=== PATIENT | female | born 2000 | race Caucasian/White ===

== ENCOUNTER 2020-08-14 18:01 | Inpatient (IN) | payer MEDICAID, SELFPAY ==
[2020-08-14 18:03] VITALS: RESP 18; TEMP 36.8; BMI 25.4
[2020-08-14] MEDS: LORazepam 1 mg Tablet PO (18:09)
--- NOTE | 2020-08-14 18:10 | W.ED.PSYCH ---
HPI - Psych General: Chief Complaint: Psychiatric Symptoms Stated Complaint: MHE Source: patient and EMS Mode of arrival: EMS Limitations: no limitations History of Present Illness: HPI Narrative: 19-year-old female lives at a foster care and states that today she is upset and does not want to live there anymore. She tried to harm herself by swallowing earrings and rubbed a plastic bottle on her arms and has some abrasions to her arms. She states she was suicidal at the time but does feel improved currently. She denies any worsening improving factors. MD complaint: suicidal ideation Associated symptoms: Reports depression and suicidal ideation Review of Systems Const: Denies: fever(s), chills, body aches or change in appetite Eyes: Denies: blurry vision or eye discomfort ENMT: Denies: throat pain or dental pain Card: Denies: chest pain Resp: Denies: dyspnea GI: Denies: abdominal pain, nausea, vomiting or diarrhea : Denies: dysuria Musc: Denies: neck pain or back pain Skin/Breast: Denies: rash Neuro: Denies: headache(s) Psych: Reports: depression and suicidal ideation Jermain/Lymph: Denies: easy bruising All/Imm: Denies: urticaria Physical Exam Const: COMMON NORMALS: no acute distress, patient oriented x3 and healthy appearing HENMT: COMMON NORMALS: normocephalic and atraumatic HEAD & SCALP: normocephalic and atraumatic Eye: COMMON NORMALS: Equal, round and reactive pupils present and EOMs intact bilaterally PUPIL: Yes Equal, round and reactive pupils present Neck/C-Spine: COMMON NORMALS: full ROM and supple Chest: COMMONS NORMALS: normal inspection of the chest and normal palpation of entire chest wall Resp: COMMON NORMALS: normal respiratory effort, No retractions, No use of accessory muscles and clear to auscultation bilaterally AUSCULTATION: clear to auscultation bilaterally Cardio: COMMON NORMALS: regular rate, regular rhythm and No murmurs present (Cardio) RATE: regular rate RHYTHM: regular rhythm GI: COMMON NORMALS: Normal to inspection, nondistended, normoactive bowel sounds present, Soft to palpation, non-tender and no masses PALPATION: Yes Soft to palpation Extremity: COMMON NORMALS: normal to inspection and full ROM Neuro: COMMON NORMALS: patient oriented x3, moves all extremities and no focal motor deficits Psych: COMMON NORMALS: mental status grossly normal, Normal thought process present and cooperative THOUGHT PROCESS: Normal thought process present Skin: COMMON NORMALS: no wounds NARRATIVE SKIN EXAM: Abrasions to bilateral arms noted MDM - Psych MDM Narrative: Medical decision making narrative: Patient presents here with suicidal ideation and did have abrasions to her arms along with foreign body ingested. X-ray shows no foreign bodies she has no signs of any bowel perforation has no pain. I spoke to the psychiatrist and will admit to the psychiatric oliver. She has been stable while here. Lab Data: Labs: Lab Results 08/14/20 08/14/20 08/14/20 Range/Units 18:20 18:20 18:22 WBC 10.0 (4.5-13.0) 10^3/ uL RBC 5.20 (4.1-5.3) 10^6/u L Hgb 14.3 (11.5-15.3) g/dL Hct 42.5 (37.0-47.0) % MCV 81.7 (81-99) fL MCH 27.5 L (28.0-34.0) pg MCHC 33.6 (30.0-36.0) g/dL RDW 13.2 (12.1-15.1) % Plt Count 277 (130-400) 10^3/c mm MPV 9.2 (7.4-10.4) fL Neut % (Auto) 68.7 % Lymph % (Auto) 20.3 % [place] % (Auto) 8.0 % Eos % (Auto) 1.7 % Baso % (Auto) 0.9 % Neut # (Auto) 6.83 (1.8-8.0) 10^3/u L Lymph # (Auto) 2.0 (1.5-6.5) 10^3/u L [place] # (Auto) 0.8 (0.2-0.9) 10^3/u L Eos # (Auto) 0.2 (0.0-0.8) 10^3/u L Baso # (Auto) 0.1 (0.0-0.1) 10^3/u L Nucleated RBC % (a uto) 0 % Nucleated RBCs # 0.0 /100WBC Sodium 133 L (136-145) mmol/L Potassium 3.8 (3.5-5.1) mmol/L Chloride 102 (98-107) mmol/L Carbon Dioxide 20 L (22-29) mmol/L Anion Gap 14.8 (5-19) BUN 9 (6-20) mg/dL Creatinine 0.7 (0.5-0.9) mg/dL GFR Calculation 107.8 (90-130) mL/min Glucose 94 (65-115) mg/dL Calculated Osmolal ity 274 L (285-295) mOsm/k g Calcium 9.8 (8.5-10.5) mg/dL Total Bilirubin 0.3 (0.15-1.2) mg/dL AST 17 (0-32) U/L ALT 11 (0-33) U/L Alkaline Phosphata se 93 (35-105) IU/L Total Protein 7.6 (6.6-8.7) g/dL Albumin 4.4 (3.5-5.2) g/dL Globulin 3.2 (1.3-4.6) g/dL HCG, Qual (Negative) Urine Color Yellow (Yellow) Urine Appearance Sl cloudy A (CLEAR) Urine pH 6 (5-7) Ur Specific Gravit y 1.020 (1.005-1.030) Urine Protein Neg (Negative) Urine Glucose (UA) Norm (Normal) Urine Ketones Negative (Negative) Urine Blood Neg (Negative) Urine Nitrate Negative (Negative) Urine Bilirubin Neg (Negative) Urine Urobilinogen Norm (Negative) mg/dL Ur Leukocyte Latoya ase 2+ H (Negative) Amorphous Sediment Not Reportable Salicylates < 0.3 L (3-10) mg/dL Urine Opiates Scre en (Negative) ng/mL Acetaminophen < 5.0 L (10-30) ug/mL Ur Barbiturates Sc reen (Negative) ng/mL Ur Phencyclidine S crn (Negative) ng/mL Ur Amphetamines Sc reen (Negative) ng/mL U Benzodiazepines Scrn (Negative) ng/mL Urine Cocaine Scre en (Negative) ng/mL U Marijuana (THC) Screen (Negative) ng/mL Ethyl Alcohol < 10 (0-10) mg/dL 08/14/20 08/14/20 Range/Units 18:22 18:22 WBC (4.5-13.0) 10^3/ uL RBC (4.1-5.3) 10^6/u L Hgb (11.5-15.3) g/dL Hct (37.0-47.0) % MCV (81-99) fL MCH (28.0-34.0) pg MCHC (30.0-36.0) g/dL RDW (12.1-15.1) % Plt Count (130-400) 10^3/c mm MPV (7.4-10.4) fL Neut % (Auto) % Lymph % (Auto) % [place] % (Auto) % Eos % (Auto) % Baso % (Auto) % Neut # (Auto) (1.8-8.0) 10^3/u L Lymph # (Auto) (1.5-6.5) 10^3/u L [place] # (Auto) (0.2-0.9) 10^3/u L Eos # (Auto) (0.0-0.8) 10^3/u L Baso # (Auto) (0.0-0.1) 10^3/u L Nucleated RBC % (a uto) % Nucleated RBCs # /100WBC Sodium (136-145) mmol/L Potassium (3.5-5.1) mmol/L Chloride (98-107) mmol/L Carbon Dioxide (22-29) mmol/L Anion Gap (5-19) BUN (6-20) mg/dL Creatinine (0.5-0.9) mg/dL GFR Calculation (90-130) mL/min Glucose (65-115) mg/dL Calculated Osmolal ity (285-295) mOsm/k g Calcium (8.5-10.5) mg/dL Total Bilirubin (0.15-1.2) mg/dL AST (0-32) U/L ALT (0-33) U/L Alkaline Phosphata se (35-105) IU/L Total Protein (6.6-8.7) g/dL Albumin (3.5-5.2) g/dL Globulin (1.3-4.6) g/dL HCG, Qual Negative (Negative) Urine Color (Yellow) Urine Appearance (CLEAR) Urine pH (5-7) Ur Specific Gravit y (1.005-1.030) Urine Protein (Negative) Urine Glucose (UA) (Normal) Urine Ketones (Negative) Urine Blood (Negative) Urine Nitrate (Negative) Urine Bilirubin (Negative) Urine Urobilinogen (Negative) mg/dL Ur Leukocyte Latoya ase (Negative) Amorphous Sediment Salicylates (3-10) mg/dL Urine Opiates Scre en Negative (Negative) ng/mL Acetaminophen (10-30) ug/mL Ur Barbiturates Sc reen Negative (Negative) ng/mL Ur Phencyclidine S crn Negative (Negative) ng/mL Ur Amphetamines Sc reen Negative (Negative) ng/mL U Benzodiazepines Scrn Positive H (Negative) ng/mL Urine Cocaine Scre en Negative (Negative) ng/mL U Marijuana (THC) Screen Negative (Negative) ng/mL Ethyl Alcohol (0-10) mg/dL Imaging Data^: CXR: Radiologist's impression: [facility] [address] [place] [id number] XRay Report Signed Patient: Roberta Gordon Unit #: [id number] : 2000 Age/Sex: 19 / F ADM Date: 08/14/20 Loc: ER Room/Bed: Attending Dr: Ordering Provider/Ordering MD: Rell Watson MD Date of Service: 08/14/20 Procedure(s): XR chest 1V portable [id number] Accession Number(s): [id number] Report Number: [id number] PROCEDURE INFORMATION: Exam: XR Chest, 1 View Exam date and time: 08/14/2020 6:17 PM Age: 19 years old Clinical indication: Other: Foreign body; Patient HX: States, swallowed parts of a binder; Additional info: Fb TECHNIQUE: Imaging protocol: XR of the chest Views: 1 view. COMPARISON: No relevant prior studies available. FINDINGS: Lungs: Unremarkable. No consolidation. Pleural spaces: Unremarkable. No pleural effusion. No pneumothorax. Heart/Mediastinum: Unremarkable. No cardiomegaly. Bones/joints: Unremarkable. Intraperitoneal space: Small radiopaque objects are noted in upper abdomen to the left of midline in the region of the gastric body. XR/XR chest 1V portable [id number] IMPRESSION: 1. No acute pulmonary disease. 2. Radiopaque foreign body in the upper abdomen. KUB: Radiologist's impression: [facility] [address] [place] [address] XRay Report Signed Patient: Roberta Gordon Unit #: [id number] : 2000 Age/Sex: 19 / F ADM Date: 08/14/20 Loc: ER Room/Bed: Attending Dr: Ordering Provider/Ordering MD: Rell Watson MD Date of Service: 08/14/20 Procedure(s): XR KUB [id number] Accession Number(s): [id number] Report Number: [id number] PROCEDURE INFORMATION: Exam: XR Abdomen, 1 View Exam date and time: 08/14/2020 6:17 PM Age: 19 years old Clinical indication: Other: Foreign body; Patient HX: States, swallowed parts of a binder; Additional info: Fb TECHNIQUE: Imaging protocol: XR of the abdomen. Views: Frontal supine view of the abdomen. 1 View. COMPARISON: No relevant prior studies available. FINDINGS: Gastrointestinal tract: Several small metallic radiopaque screw like objects are noted in the upper abdomen in the expected region of the gastric lumen. Bowel gas pattern is nonobstructive. Negative for bowel pneumatosis. Intraperitoneal space: Negative for pneumoperitoneum. Bones/joints: Unremarkable. Other findings: Moderate fecal volume. XR/XR KUB [id number] IMPRESSION: Several metallic screw like foreign body objects project over the stomach. Discharge Plan Discharge Patient Disposition: Admitted As Inpatient Clinical Impression: Suicidal ideation, Foreign body ingestion Condition: Stable Coding Level of Care Code ED Cardiology Manager for Gypsy Fwkarla Exam Comprehensive
--- NOTE | 2020-08-14 18:14 | XRR_ITS ---
PROCEDURE INFORMATION: Exam: XR Abdomen, 1 View Exam date and time: 08/14/2020 6:17 PM Age: 19 years old Clinical indication: Other: Foreign body; Patient HX: States, swallowed parts of a binder; Additional info: Fb TECHNIQUE: Imaging protocol: XR of the abdomen. Views: Frontal supine view of the abdomen. 1 View. COMPARISON: No relevant prior studies available. FINDINGS: Gastrointestinal tract: Several small metallic radiopaque screw like objects are noted in the upper abdomen in the expected region of the gastric lumen. Bowel gas pattern is nonobstructive. Negative for bowel pneumatosis. Intraperitoneal space: Negative for pneumoperitoneum. Bones/joints: Unremarkable. Other findings: Moderate fecal volume. XR/XR KUB [id number] IMPRESSION: Several metallic screw like foreign body objects project over the stomach.
--- NOTE | 2020-08-14 18:14 | XRR_ITS ---
PROCEDURE INFORMATION: Exam: XR Chest, 1 View Exam date and time: 08/14/2020 6:17 PM Age: 19 years old Clinical indication: Other: Foreign body; Patient HX: States, swallowed parts of a binder; Additional info: Fb TECHNIQUE: Imaging protocol: XR of the chest Views: 1 view. COMPARISON: No relevant prior studies available. FINDINGS: Lungs: Unremarkable. No consolidation. Pleural spaces: Unremarkable. No pleural effusion. No pneumothorax. Heart/Mediastinum: Unremarkable. No cardiomegaly. Bones/joints: Unremarkable. Intraperitoneal space: Small radiopaque objects are noted in upper abdomen to the left of midline in the region of the gastric body. XR/XR chest 1V portable [id number] IMPRESSION: 1. No acute pulmonary disease. 2. Radiopaque foreign body in the upper abdomen.
[2020-08-14 18:19] VITALS: BP 122/84; PULSE 107; RESP 15; O2SAT 96
--- NOTE | 2020-08-14 18:21 | PC.NURSE ---
when this nurse was talking to pt about the need to change out of clothes into paper scrubs pt became very anxious and tearful stating she cannot get all naked again and please don't make me take my sports bra off . This nurse spoke with RN Construction Equipment Technician (KEO Muhammad) and pt may keep her sports bra on when/if she goes to NPU
[2020-08-14 18:25] LABS: Basophils # 0.1 10^3/uL (0.0-0.1); Basophils % 0.9 %; Eosinophils # 0.2 10^3/uL (0.0-0.8); Eosinophils % 1.7 %; Hematocrit 42.5 % (37.0-47.0); Hemoglobin 14.3 g/dL (11.5-15.3); Lymphocytes % 20.3 %; Mean Corpuscular HGB Conc 33.6 g/dL (30.0-36.0); Mean Corpuscular Hemoglobin 27.5 pg (28.0-34.0); Mean Corpuscular Volume 81.7 fL (81-99); Mean Platelet Volume 9.2 fL (7.4-10.4); Monocytes # 0.8 10^3/uL (0.2-0.9); Neutrophils # 6.83 10^3/uL (1.8-8.0); Neutrophils % 68.7 %; Nucleated Red Blood Cells % 0 %; Platelet Count 277 10^3/cmm (130-400); Red Cell Distribution Width 13.2 % (12.1-15.1)
[2020-08-14 18:26] VITALS: RESP 18
--- NOTE | 2020-08-14 18:42 | PC.PHAR ---
WAITING FOR PTS CAREGIVER TO GET A COPY OF THE PTS MAR-PT BROUGHT IN MED LIST WAS DRUG NAMES BUT NO MG OR DIRECTIONS-MEDICATIONS ENTERED ARE MEDICATIONS THAT SHOW HAVE BEEN FILLED RECENTLY ON EXT MED HISTORY
[2020-08-14 18:53] LABS: Alanine Aminotransferase 11 U/L (0-33); Albumin Level 4.4 g/dL (3.5-5.2); Alkaline Phosphatase 93 IU/L (35-105); Anion Gap 14.8 (5-19); Aspartate Amino Transferase 17 U/L (0-32); Blood Urea Nitrogen 9 mg/dL (6-20); Calcium 9.8 mg/dL (8.5-10.5); Carbon Dioxide 20 mmol/L (22-29); Chloride 102 mmol/L (98-107); Globulin 3.2 g/dL (1.3-4.6); Glomerular Filtration Rate 107.8 mL/min (90-130); Glucose 94 mg/dL (65-115); Osmolality Calculated 274 mOsm/kg (285-295); Potassium 3.8 mmol/L (3.5-5.1); Sodium 133 mmol/L (136-145); Total Bilirubin 0.3 mg/dL (0.15-1.2); Total Protein 7.6 g/dL (6.6-8.7)
[2020-08-14 18:57] LABS: Acetaminophen < 5.0 ug/mL (10-30); Alcohol Level < 10 mg/dL (0-10); Salicylate < 0.3 mg/dL (3-10)
[2020-08-14 19:01] LABS: Amphetamines Screen Urine Negative (Negative); Barbiturates Screen Urine Negative (Negative); Benzodiazepines Screen Urine Positive (Negative); Cocaine Screen Urine Negative (Negative); Opiate Screen Urine Negative (Negative); PCP Screen Urine Negative (Negative); THC Screen Urine Negative (Negative)
[2020-08-14 19:03] VITALS: RESP 18
[2020-08-14 19:10] LABS: Bilirubin Urine Neg (Negative); Blood Urine Neg (Negative); Glucose Urine UA Norm (Normal); Ketones Urine Negative (Negative); Nitrate Urine Negative (Negative); Protein Urine Neg (Negative); Urine Color Yellow (Yellow); pH Urine 6 (5-7)
[2020-08-14 19:11] LABS: Add Urine Microscopic? YES; Leukocyte Esterase Urine 2+ (Negative); Urobilinogen Urine Norm (Negative)
[2020-08-14 19:17] LABS: HCG Qualitative Urine. Negative (Negative)
[2020-08-14 19:26] LABS: Add Urine Culture? No; Amorphous Sediment Urine 1+ /hpf; Bacteria Urine 3+ /hpf; RBC Urine 0-4 /hpf (0-2); Squamous Epithelial Cell Urine 25-40 /hpf (0-5); WBC Urine 80-100 /hpf (0-5)
[2020-08-14 19:55] VITALS: BP 107/74; PULSE 110; RESP 18; TEMP 36.3; O2SAT 97
[2020-08-14 20:08] LABS: Thyroid Stimulating Hormone 0.78 uIU/mL (0.27-4.20)
[2020-08-14 21:34] VITALS: BP 107/74; PULSE 110; RESP 18; TEMP 36.3; O2SAT 97
[2020-08-14] MEDS: haloperidol 5 mg Tablet 10 MG PO (22:00)
[2020-08-14] MEDS: benztropine 1 mg Tablet PO (22:01)
[2020-08-14] MEDS: montelukast sodium 10 mg Tablet PO (22:01)
[2020-08-15 06:00] VITALS: BP 97/62; PULSE 75; RESP 17; TEMP 36.5; O2SAT 97
[2020-08-15] MEDS: cholecalciferol (vitamin D3) 1,000 unit Tablet 2000 UNIT PO (08:09)
[2020-08-15] MEDS: naltrexone hcl 50 mg Tablet PO (08:09)
[2020-08-15] MEDS: haloperidol 1 mg Tablet 2 MG PO ×2 (08:10→13:11)
[2020-08-15] MEDS: levothyroxine 125 mcg Tablet PO (08:10)
--- NOTE | 2020-08-15 11:46 | PM.NHP ---
Providers/Chief Complaint Admitting Physician: Freddy Carty DO Chief Complaint: MHE HPI NPU History of Present Illness Roberta Gordon is a 19 year old female with developmental delay and unclear psychiatric history presenting to the emergency department with self-harm behavior of swallowing a near ring and rubbing a plastic bottle against her arm to create an abrasion. Patient during the emergency department evaluation was no longer endorsing suicidal ideation but patient now clarifies that she has chronic passive suicidal thoughts of not wanting to be around anymore. Patient denies any thoughts about wanting to end her life but states that she wants to live in her own apartment and does not want a return to her foster care. Patient was recently hospitalized within the past week for 7 days at an inpatient psychiatry unit in [place]. Patient reports no changes in mood from prior to that hospitalization but states that some of her medications were changed during that hospitalization. These records are not available at this time for review. Patient reports chronic perceptual disturbances of hearing things and seeing things but states that I do not want to talk about it. She currently denies any depressive symptoms, denies any suicidal ideation. She denies any recent manic or hypomanic episodes. Patient states that she does not want to talk about any trauma related symptoms. Patient does report having some stomachaches and reports that she does not feel hungry but states that she had felt this way prior to swallowing her earrings. Psychiatric review of systems is otherwise negative. Patient reports ongoing stressor of being in foster care and not wanting to be under anyone else's care. Patient states I do not want to go back to where I was, my studio receptionist will take care of it. Review of Systems General: Reports: 10 or more systems reviewed and unremarkable except in HPI and below Meds NPU Home Medications Medication Instructions Recorded Confirmed Last Taken Type benztropine 1 mg PO BEDTIME 08/14/20 08/14/20 08/13/20 20:00 History cholecalciferol (vitamin D3) 2,000 unit PO DAILY 08/14/20 08/14/20 08/14/20 09:00 History [Vitamin D3] haloperidol 2 mg PO DIRECTED 08/14/20 08/14/20 08/14/20 08:00 History haloperidol 10 mg PO BEDTIME 08/14/20 08/14/20 08/13/20 20:00 History levothyroxine 125 mcg PO DAILY 08/14/20 08/14/20 08/14/20 08:00 History montelukast 10 mg PO BEDTIME 08/14/20 08/14/20 08/13/20 20:00 History naltrexone 50 mg PO DAILY 08/14/20 08/14/20 08/14/20 08:00 History sennosides-docusate sodium 1 tab PO BID PRN 08/14/20 08/14/20 Unknown History [Stimulant Laxative Plus] Allergies Allergy/AdvReac Type Severity Reaction Status Date / Time Cephalosporins Allergy Unknown Verified 08/14/20 19:44 diphenhydramine Allergy Unknown Verified 08/14/20 19:44 [From Benadryl] Macrolide Antibiotics Allergy Unknown Verified 08/14/20 19:44 Penicillins Allergy Unknown Verified 08/14/20 19:44 Sulfa (Sulfonamide Allergy Unknown Verified 08/14/20 19:44 Antibiotics) trovafloxacin [From Trovan] Allergy Unknown Verified 08/14/20 19:44 Ketolides Allergy Unknown Uncoded 08/14/20 19:44 REPLACED BY [facility] NPU Other Psychiatric History: Other Psychiatric History: Unable to obtain at this time given patient's lack of participation. Requesting records from previous hospitalization Mental Status Exam MSE Comments: Lying in bed, irritable, poor eye contact, poor rapport with interviewer Psychomotor activity is somewhat decreased, no agitation Speech is sparse, somewhat slow rate, normal volume, not pressured I do not feel good, , constricted affect, irritable, not labile Alert and oriented to person, place, time, situation Unable to assess memory given lack of participation with interview questions Thought process, linear but brief, no flight of ideas, no looseness of associations Thought content, no delusions, does not appear to be attending to any internal stimuli, no suicidal or homicidal ideation Insight and judgment appears to be fair at best Vitals/I&O/Wt Last Vital Signs Temp 97.7 F 08/15/20 06:00 Pulse 75 08/15/20 06:00 Resp 17 08/15/20 06:00 BP 97/62 08/15/20 06:00 Pulse Ox 97 08/15/20 06:00 Weight last 48 hrs Weight 58.967 kg Weight 58.967 kg Data NPU : 08/14/20 18:20 08/14/20 18:20 A&P Assessment and plan (1) Developmental delay, moderate: Status: Acute (2) Foreign body ingestion: Status: Acute (3) Adjustment disorder with mixed disturbance of emotions and conduct: Status: Acute Additional A&P Information 19-year-old female with unclear past psychiatric history not participating in interview with no records available from recent psychiatric admission related to similar circumstances of behavioral disturbances likely related to developmental delay as well as mismatch of patient's expectations and reality. Patient on multiple psychiatric medications with ongoing behavioral disturbances. Patient reports chronic passive suicidal ideation with intermittent self harming behaviors that appear to be in the context of ongoing stressors currently reporting no intent of ending her life but would like to stay somewhere else other than her current living arrangement. These behavioral disturbances are best dealt with in an outpatient setting targeting behavioral redirection. INVOLUNTARY ADMIT to inpatient psychiatry RESTART home medication Request hospital records from previous admission in [place] Coordinate with social work for post discharge follow-up for counseling/therapy targeting behavioral redirection Anticipate discharge tomorrow Involuntary Hold Information 96 Hour Hold: 96 Hour Involuntary Admission: Yes 96 Hour Hold Ending Date: 08/20/20 96 Hour Hold Ending Time: 19:12 Attestations NPU Medical Necessity Statement*: Psychiatric hospitalization for observation for return of any suicidal ideation Anticipate hospital stay to exceed 2 midnights Time Spent in Patient Care: Greater than 35 minutes (>than 50% of time spent in counselling and/or direct pt care on unit). Coding Level of Care Code Acute Web Production Artist for Gypsy Fwd Diagnoses Developmental delay, moderate R62.50 Foreign body ingestion T18.9XXA Adjustment disorder with mixed disturbance of emotions and conduct F43.25
[2020-08-15 12:48] LABS: Alanine Aminotransferase 10 U/L (0-33); Albumin Level 4.1 g/dL (3.5-5.2); Alkaline Phosphatase 91 IU/L (35-105); Anion Gap 11.8 (5-19); Aspartate Amino Transferase 16 U/L (0-32); Blood Urea Nitrogen 7 mg/dL (6-20); Calcium 9.5 mg/dL (8.5-10.5); Carbon Dioxide 22 mmol/L (22-29); Chloride 102 mmol/L (98-107); Glomerular Filtration Rate 107.8 mL/min (90-130); Glucose 83 mg/dL (65-115); Osmolality Calculated 271 mOsm/kg (285-295); Potassium 3.8 mmol/L (3.5-5.1); Sodium 132 mmol/L (136-145); Total Bilirubin 0.4 mg/dL (0.15-1.2); Total Protein 7.1 g/dL (6.6-8.7)
[2020-08-15 14:00] VITALS: BP 103/67; PULSE 105; RESP 20; TEMP 36.3; O2SAT 96
[2020-08-15] MEDS: haloperidol 5 mg Tablet 10 MG PO (19:51)
[2020-08-15] MEDS: montelukast sodium 10 mg Tablet PO (19:52)
[2020-08-15] MEDS: benztropine 1 mg Tablet PO (19:52)
[2020-08-15] MEDS: trazodone 50 mg Tablet PO (21:08)
[2020-08-15] MEDS: hyDROXYzine 25 mg Capsule 50 MG PO (21:08)
[2020-08-16 06:00] VITALS: RESP 17
[2020-08-16] MEDS: naltrexone hcl 50 mg Tablet PO (07:55)
[2020-08-16] MEDS: haloperidol 1 mg Tablet 2 MG PO (07:55)
[2020-08-16] MEDS: cholecalciferol (vitamin D3) 1,000 unit Tablet 2000 UNIT PO (07:56)
[2020-08-16] MEDS: levothyroxine 125 mcg Tablet PO (07:56)
--- NOTE | 2020-08-16 10:15 | P.PN_ITS ---
Subjective NPU Subjective: Interval history: Patient mostly staying in bed, continues to report upset stomach and states that she has not had a bowel movement Denies any interval suicidal ideation or thoughts but self-harm Denies any interval mood symptoms, denies any depressive symptoms. Denies any interval psychotic symptoms, denies any auditory or visual hallucinations Patient continues to be compliant with home medication regimen with no reports of any medication side effects Mental Status Exam MSE Comments: Lying in bed, tired appearing, calm, cooperative, interactive, good eye contact Psychomotor activity is neither increased nor decreased, no agitation Speech is low volume, normal rate, spontaneous, not pressured I feel okay, , full range of affect, not labile Alert and oriented to person, place, time, situation Memory and concentration appear to be intact per interview Thought process, linear, no flight of ideas, no looseness of associations Thought content, no delusions, no hallucinations, no suicidal or homicidal ideation Insight and judgment appears to be fair at best Vitals/I&O/Wt Last Vital Signs Temp 97.3 F L 08/15/20 14:00 Pulse 105 H 08/15/20 14:00 Resp 17 08/16/20 06:00 BP 103/67 08/15/20 14:00 Pulse Ox 96 08/15/20 14:00 Weight last 48 hrs Weight 58.967 kg Weight 58.967 kg Data NPU : 08/14/20 18:20 08/15/20 11:49 A&P Assessment and plan (1) Adjustment disorder with mixed disturbance of emotions and conduct: Status: Acute (2) Foreign body ingestion: Status: Acute (3) Developmental delay, moderate: Status: Acute Additional A&P Information Patient without any suicidal ideation or thoughts about self-harm, denies any interval psychotic symptoms, denies having any bowel movements, noted to have hyponatremia but asymptomatic, unsure if this is longstanding. CONTINUE home medication, continue to monitor Coordinate with psychotherapist social worker for discharge back to foster care Involuntary Hold Information 96 Hour Hold: 96 Hour Involuntary Admission: Yes 96 Hour Hold Ending Date: 08/20/20 96 Hour Hold Ending Time: 19:12 Attestations NPU Medical Necessity Statement*: Patient requires hospitalization for observation and coordination of safe discharge back to [facility] Coding Level of Care Code Acute Bottom Turning Lathe Tender for Gypsy Simmons Diagnoses Adjustment disorder with mixed disturbance of emotions and conduct F43.25 Foreign body ingestion T18.9XXA Developmental delay, moderate R62.50
--- NOTE | 2020-08-16 13:49 | PC.NURSE ---
Refused medication: patient refused to take the Haldol 1400 dose. Charge nurse notified and medication returned. RICA, ELZBIETA
[2020-08-16 14:00] VITALS: BP 99/61; PULSE 73; RESP 18; TEMP 37.1; O2SAT 96
[2020-08-16] MEDS: acetaminophen 325 mg Tablet 650 MG PO (18:29)
[2020-08-16] MEDS: benztropine 1 mg Tablet PO (20:09)
[2020-08-16] MEDS: montelukast sodium 10 mg Tablet PO (20:09)
[2020-08-16] MEDS: haloperidol 5 mg Tablet 10 MG PO (20:09)
[2020-08-16 20:47] VITALS: BP 104/70; PULSE 109; RESP 18; TEMP 35.9; O2SAT 94
[2020-08-17 06:00] VITALS: BP 111/67; PULSE 77; RESP 17; TEMP 36.4; O2SAT 98
--- NOTE | 2020-08-17 08:14 | PC.NURSE ---
Addendum entered by Ladan Sandra LPN 08/17/20 09:38: after discussion with the doctor, pt agreeable to take scheduled morning medications Original Note: refused scheduled morning medications, staff encouraged pt to take meds & pt stated I said no
--- NOTE | 2020-08-17 09:22 | PM.NDC ---
Diagnoses at Discharge Discharge Diagnosis (1) Adjustment disorder with mixed disturbance of emotions and conduct: Status: Acute (2) Foreign body ingestion: Status: Acute (3) Developmental delay, moderate: Status: Acute Reason for Visit Reason for Visit: [facility] Hospital Course Hospital Course 19 year old female with developmental delay and unclear psychiatric history presenting to the emergency department with self-harm behavior of swallowing a near ring and rubbing a plastic bottle against her arm to create an abrasion. At the time of admission, patient continued to have passive suicidal ideation which appears to be chronic in nature in which she continues to endorse thoughts about self-harm particularly in stressful situations or as a means to manipulate her environment. She subsequently denied any suicidal ideation and denied any perceptual disturbances although this appears to be chronic in nature as well. Patient was intermittently compliant with medication, once again in situations in which she becomes upset. Patient has not had a bowel movement during this admission but was administered a laxative as well as ensuring normal hydration and diet as well as being encouraged to get up and walk around on the unit. Patient would benefit most in an environment with continued behavioral redirection given that most of her behaviors are not amenable to any direct medication changes. Patient was not suicidal at the time of discharge and did not appear to pose an imminent threat of harm to self or others. Patient will also require outpatient follow-up to ensure passage of ingested earring. Low to moderate risk of harm to self or others given chronic passive suicidal ideation and intermittent self-harm behavior in the context of stressors and inability to mount adaptive coping strategies. Risk mitigation included hospitalization for observation but requiring no acute medication management changes. Risk reduction would include ongoing behavioral redirection and focusing on development of more adaptive coping strategies in the context of her ongoing perceived stressors including her desire to live on her own. Involuntary Hold Information 96 Hour Hold: 96 Hour Involuntary Admission: Yes 96 Hour Hold Ending Date: 08/20/20 96 Hour Hold Ending Time: 19:12 Mental Status Exam MSE Comments: Sitting up in bed, calm, cooperative, interactive, good eye contact Psychomotor activity is neither increased nor decreased, no agitation Speech is low volume, normal rate, spontaneous, not pressured I feel pretty good, , full range of affect, not labile Alert and oriented to person, place, time, situation Memory and concentration appear to be intact per interview Thought process, linear, no flight of ideas, no looseness of associations Thought content, no delusions, no hallucinations, no suicidal or homicidal ideation Insight and judgment appears to be fair at best Discharge Data Data Completed and Pending: Completed Studies During Hospitalization Category Date Time Status XR KUB [id number] Stat Exams 08/14/20 18:14 Completed XR chest 1V zander ble [id number] Stat Exams 08/14/20 18:14 Completed Vitals: Last Vital Signs Temp 97.6 F 08/17/20 06:00 Pulse 77 08/17/20 06:00 Resp 17 08/17/20 06:00 BP 111/67 08/17/20 06:00 Pulse Ox 98 08/17/20 06:00 Discharge Plan Discharge Patient Disposition: Home Condition: Stable Prescriptions: Continued naltrexone 50 mg tablet 50 mg PO DAILY RF: 0 sennosides-docusate sodium [Stimulant Laxative Plus] 8.6-50 mg tablet 1 tab PO BID PRN (Reason: Constipation) RF: 0 levothyroxine 125 mcg tablet 125 mcg PO DAILY RF: 0 haloperidol 10 mg tablet 10 mg PO BEDTIME RF: 0 benztropine 1 mg tablet 1 mg PO BEDTIME RF: 0 montelukast 10 mg tablet 10 mg PO BEDTIME RF: 0 haloperidol 2 mg tablet 2 mg PO DIRECTED RF: 0 cholecalciferol (vitamin D3) [Vitamin D3] 50 mcg (2,000 unit) tablet 2,000 unit PO DAILY RF: 0 Discharge Orders: Discharge Order (Routine); Ordered 08/17/20 Ordered By: Freddy Carty Discharge Diet: Usual diet Discharge Activity: Resume usual activity Discharge Attestations NPU Time Spent in Discharge Care*: greater than 30 min Status at Discharge: Cognitive status at discharge: mildly impaired cognition, Behavioral status at discharge: cooperative, Functional status at discharge: independent ambulation Overall status at discharge: patient is back to baseline Coding Level of Care Code Acute [employer] Diagnoses Adjustment disorder with mixed disturbance of emotions and conduct F43.25 Foreign body ingestion T18.9XXA Developmental delay, moderate R62.50
[2020-08-17] MEDS: levothyroxine 125 mcg Tablet PO (09:24)
[2020-08-17] MEDS: naltrexone hcl 50 mg Tablet PO (09:24)
[2020-08-17] MEDS: cholecalciferol (vitamin D3) 1,000 unit Tablet 2000 UNIT PO (09:24)
[2020-08-17] MEDS: haloperidol 1 mg Tablet 2 MG PO ×2 (09:25→13:27)
[2020-08-17] MEDS: neomycin-poly-bacitracin oint 28 gm 1 APPLIC TOPICAL ×2 (09:38→20:26)
--- NOTE | 2020-08-17 09:38 | PC.NURSE ---
PRN TRIPLE ANTIBIOTIC OINTMENT 1 APPLICATION APPLIED TO BURN CRAVEN ON RIGHT ARM
[2020-08-17] MEDS: magnesium citrate Btl 296 mL 150 ML PO (11:25)
[2020-08-17 13:44] VITALS: BP 96/58; PULSE 85; RESP 16; TEMP 37.3; O2SAT 95
[2020-08-17] MEDS: montelukast sodium 10 mg Tablet PO (20:24)
[2020-08-17] MEDS: haloperidol 5 mg Tablet 10 MG PO (20:24)
[2020-08-17] MEDS: benztropine 1 mg Tablet PO (20:24)
[2020-08-17 20:37] VITALS: BP 111/77; PULSE 72; RESP 17; TEMP 36.2; O2SAT 95
--- NOTE | 2020-08-17 23:00 | PC.NURSE ---
PER RECORDS- DEPO PROVERA NEXT DUE ON 09/26/2020 LAST GIVEN TO PATIENT ON 06/28/2020
--- NOTE | 2020-08-17 23:26 | PC.NURSE ---
PLACEMENT LEVEL 2 PLACEMENT FOUND FOR PT IN [facility]. PER Santo FROM [facility], PT WILL NOT NEED TO TAKE ANYTHING WITH HER IN THE TRANSPORT EXCEPT MEDICATIONS IN THE TOOL BOX, THEIR OFFICE WILL MAKE ARRANGEMENTS TO STUDENT SERVICES DEAN THE PT'S BELONGINGS AND TRANSPORT THEM TO HER IN HER NEW HOME. [facility], GUARDIAN: EMILY DEMPSEY [phone]
--- NOTE | 2020-08-17 23:32 | PC.NURSE ---
PM ASSESSMENT PT IS VERY CHILDLIKE IN HER BEHAVIOR, SWINGING HER FEET WHILE TALKING WITH NURSE. PT SHOWED NURSE HER ARMS AND SAID THE CUTS NEEDED SOME OINTMENT. NO S/S OF INFECTION NOTED. PAIN RATED A 3 ON A 1-10 SCALE. PT WANTED TYLENOL FOR THIS. MED NURSE NOTIFIED. PT V/S ARE WNL, HEART/LUNG SOUNDS ARE NORMAL. PT DENIES AH/VH. DENIES SI/HI.
--- NOTE | 2020-08-18 00:23 | PC.NURSE ---
BELONGINGS DROPPED OFF PT HAD 2 LARGE BAGS OF BELONGINGS DROPPED OFF, A JOVAN TOOL BOX FULL OF MEDICATIONS WITH A CODE LOCK ON IT, CODE IS 0000. PT ALSO HAS 2 LARGE BOOKS OF MEDICAL RECORDS HERE. MEDICATIONS AND BELONGINGS LOGGED IN BY STAFF. PER SAMMI, THE [employer] [employer] CONTACT, PT WILL BE LEAVING NPU TO GO TO PLACEMENT IN [facility] BUT DID NOT KNOW THE NAME OF FACILITY. SHE STATED, WE HAVE OFFICES IN YOUR AREA AND WE WILL ARRANGE EDUCATIONAL SIGN LANGUAGE INTERPRETER OF CLOTHING AND BAGGAGE. HOWEVER, PT NEEDS MEDICATION CASE SENT WITH HER AND THAT IS ALL SHE NEEDS TO HAVE WITH HER WHEN SHE LEAVES.
--- NOTE | 2020-08-18 04:55 | PC.NURSE ---
pt belongings [facility] staff dropped off 2 binders with medical records, a hailey tool box closed with a numeric lock with a code of 0000 containing multiple medications, each logged into chart, a large rolling suitcase, a large black trash bag with pt belongings, and a large stuffed catepillar. Pt is to take the medications with her to transfer to new location in [facility] that is a level 2 facility per Tia at [facility], in the morning.The remaining items will be picked up by staff from a local office to ensure delivery of these items to her
[2020-08-18 06:00] VITALS: RESP 16; TEMP 36.8
[2020-08-18] MEDS: cholecalciferol (vitamin D3) 1,000 unit Tablet 2000 UNIT PO (08:33)
[2020-08-18] MEDS: naltrexone hcl 50 mg Tablet PO (08:34)
[2020-08-18] MEDS: levothyroxine 125 mcg Tablet PO (08:34)
[2020-08-18] MEDS: haloperidol 1 mg Tablet 2 MG PO (08:48)
[2020-08-18 13:10] VITALS: RESP 16; TEMP 36.8
== END 2020-08-18 13:22 | disposition home or self-care (01) | DRG 882 ==
LOC: ER 19:19 → NP 19:46
PROVIDERS: Admitting Provider Psychiatry & Neurology Psychiatry; Emergency Provider Emergency Medicine; Visit Provider Psychiatry & Neurology Psychiatry
DX: F43.25 Adjustment disorder with mixed disturbance of emotions and conduct (principal); R45.851 Suicidal ideations; R62.50 Unspecified lack of expected normal physiological development in childhood; T18.2XXA Foreign body in stomach, initial encounter; X83.8XXA Intentional self-harm by other specified means, initial encounter; Y92.009 Unspecified place in unspecified non-institutional (private) residence as the place of occurrence of the external cause
CPT/HCPCS: 36415; 71045; 74018; 80053; 80306; 80307; 81001; 81025; 84443; 85025; 99285